=== PATIENT | male | born 1955 | race Hispanic/Latino ===

== ENCOUNTER 2017-10-12 11:59 | Emergency (ER) | payer OTHER, SELFPAY ==
[2017-10-12 12:53] LABS: Protime INR 0.9
[2017-10-12 12:54] LABS: Absolute Lymphocytes (CBC) 0.5 K/uL (0.7-4.9); Absolute Monocytes 0.3 K/uL (0.1-1.3); Basophils % 0.5 % (0-1.3); Eosinophils % 0.9 % (0-4.4); Hematocrit 39.4 % (39.6-49.0); Lymphocytes % 9.1 % (15.3-44.8); MCH 29.9 pg (27.0-35.0); MCV 89.8 fL (80-100); MPV 10.2 fL (7.6-11.3); Monocytes % 4.2 % (3.3-12.3); Potassium 4.7 mEq/L (3.6-5.0); RBC Red Blood Cell Count 4.39 M/uL (4.33-5.43)
[2017-10-12 13:00] LABS: Bilirubin Direct 0.1 mg/dL (0-0.2); Bilirubin Total 0.7 mg/dL (0.3-1.2); Protein, Total 7.1 g/dL (6.0-8.3)
[2017-10-12 13:02] LABS: CKMB Creatine Kinase MB 2.8 ng/ml (0.3-4.0)
--- NOTE | 2017-10-12 13:44 | RAD REPORT ---
EXAM DESCRIPTION: CT - Head Brain Wo Cont - 10/12/2017 1:30 pm CLINICAL HISTORY: Frontal headache, weakness, dizziness COMPARISON: None. TECHNIQUE: Axial 5 mm thick images of the head were obtained without IV contrast. All CT scans are performed using dose optimization technique as appropriate and may include automated exposure control or mA/KV adjustment according to patient size. FINDINGS: No intracranial hemorrhage, mass, edema or shift of mid-line structures. No acute cortical based infarction. Patient has mild atrophy and mild chronic ischemic change. Ventricular size is in proportion. No abnormal extra-axial fluid collections. Arterial and physiologic calcifications are pr esent. Mastoid air cells and visualized portions of the paranasal sinuses are clear. No acute bony findings. IMPRESSION: Mild atrophy and chronic ischemic change with no acute intracranial finding.
--- NOTE | 2017-10-12 13:48 | RAD REPORT ---
EXAM DESCRIPTION: CT - Head angio - 10/12/2017 1:35 pm CLINICAL HISTORY: Headache, dizziness, hypertension TECHNIQUE: During dynamic enhancement using nonionic IV contrast, axial 1 millimeter thick images we re obtained. Exam extended from just below the skull base through the top of the skull. Sagittal and coronal reformatted images were generated and reviewed. All CT scans are performed using dose optimization technique as appropriate and may include automated exposure control or mA/KV adjustment according to patient size. COMPARISON: Noncontrast CT head same date FINDINGS: Vertebral arteries are codominant. No basilar artery abnormality seen. Bilateral internal carotid artery is also unremarkable with no stenosis. Atherosclerotic calcifications are present wit hin the cavernous and supraclinoid portions of each internal carotid artery. No significant luminal n arrowing seen. The anterior, middle and posterior cerebral artery distributions are unremarkable. No aneurysm or vascular malformation identifiable. Normal opacification of the major venous sinuses. No venous sinus thrombosis. IMPRESSION: Negative CT angio head examination for aneurysm, vascular malformation or other signifi cant finding. Mild internal carotid atherosclerotic calcifications are present without luminal narrowing.
--- NOTE | 2017-10-12 14:07 | RAD REPORT ---
EXAM DESCRIPTION: RAD - Chest Single View - 10/12/2017 1:56 pm CLINICAL HISTORY: Headache, dizziness, weakness COMPARISON: February 2016 TECHNIQUE: AP portable chest image was obtained 1346 hours . FINDINGS: Interstitial markings are accentuated by low lung volume. Significant interval change is d oubtful. The shallow inspiration could result in lung base edema or infiltrate could be masked. No co nsolidation. No failure finding. Heart and vasculature are normal. No measurable pleural effusion and no pneumothorax. No gross bony abnormality seen. No acute aortic findings suspected. IMPRESSION: No acute cardiopulmonary process. Shallow inspiration could potentially mask earliest stages of lung base interstitial edema or infiltr ate.
--- NOTE | 2017-10-12 14:13 | EDPHYS ---
Physician Documentation [facility] Name: Ian Celestin Age: 62 yrs Sex: Male : 1955 Arrival Date: 10/12/2017 Time: 12:01 Bed 5 Private MD: ED Physician Dveyn Yeboah HPI: 10/12 12:17 This 62 yrs old Male presents to ER via Ambulatory with complaints of lonnie Headache, Vomiting. 12:17 The patient complains of pain to the forehead, left side of forehead and right side of lonnie forehead. The patient describes the headache as aching. Onset: The symptoms/episode began/occurred this morning. Associated signs and symptoms: The patient has no apparent associated signs or symptoms. Severity of symptoms: At its worst the pain was mild, in the emergency department the pain is unchanged. Headache History: Denies prior headaches. The symptoms are alleviated by nothing. the symptoms are aggravated by nothing. The patient has not experienced similar symptoms in the past. Historical: - Allergies: 12:07 Lisinopril; aj - Home Meds: 12:07 levemir 100 u/ml [Active]; losartan 50 mg Oral tab 1 tab once daily [Active]; metformin aj 500 mg Oral Tb24 2 tabs 2 times per day for Type 2 Diabetes Mellitus [Active]; - PMHx: 12:07 Diabetes - IDDM; Hyperlipidemia; Hypertension; aj - PSHx: 12:07 None; aj - Immunization history:: Adult Immunizations up to date. - Social history:: Smoking status: Patient/guardian denies using tobacco. - Family history:: not pertinent. ROS: 12:17 Constitutional: Negative for fever, chills, and weight loss, Eyes: Negative for injury, lonnie pain, redness, and discharge, ENT: Negative for injury, pain, and discharge, Neck: Negative for injury, pain, and swelling, Cardiovascular: Negative for chest pain, palpitations, and edema, Respiratory: Negative for shortness of breath, cough, wheezing, and pleuritic chest pain, Abdomen/GI: Negative for abdominal pain, nausea, vomiting, diarrhea, and constipation, Back: Negative for injury and pain, : Negative for injury, bleeding, discharge, and swelling, MS/Extremity: Negative for injury and deformity, Skin: Negative for injury, rash, and discoloration, Psych: Negative for depression, anxiety, suicide ideation, homicidal ideation, and hallucinations, Allergy/Immunology: Negative for hives, rash, and allergies, Endocrine: Negative for neck swelling, polydipsia, polyuria, polyphagia, and marked weight changes, Hematologic/Lymphatic: Negative for swollen nodes, abnormal bleeding, and unusual bruising. 12:17 Neuro: Positive for headache. Exam: 12:17 Constitutional: This is a well developed, well nourished patient who is awake, alert, lonnie and in no acute distress. Head/Face: Normocephalic, atraumatic. Eyes: Pupils equal round and reactive to light, extra-ocular motions intact. Lids and lashes normal. Conjunctiva and sclera are non-icteric and not injected. Cornea within normal limits. Periorbital areas with no swelling, redness, or edema. ENT: Nares patent. No nasal discharge, no septal abnormalities noted. Tympanic membranes are normal and external auditory canals are clear. Oropharynx with no redness, swelling, or masses, exudates, or evidence of obstruction, uvula midline. Mucous membranes moist. Neck: Trachea midline, no thyromegaly or masses palpated, and no cervical lymphadenopathy. Supple, full range of motion without nuchal rigidity, or vertebral point tenderness. No Meningismus. Chest/axilla: Normal chest wall appearance and motion. Nontender with no deformity. No lesions are appreciated. Cardiovascular: Regular rate and rhythm with a normal S1 and S2. No gallops, murmurs, or rubs. Normal PMI, no JVD. No pulse deficits. Respiratory: Lungs have equal breath sounds bilaterally, clear to auscultation and percussion. No rales, rhonchi or wheezes noted. No increased work of breathing, no retractions or nasal flaring. Abdomen/GI: Soft, non-tender, with normal bowel sounds. No distension or tympany. No guarding or rebound. No evidence of tenderness throughout. Back: No spinal tenderness. No costovertebral tenderness. Full range of motion. Male : Normal genitalia with no discharge or lesions. Skin: Warm, dry with normal turgor. Normal color with no rashes, no lesions, and no evidence of cellulitis. MS/ Extremity: Pulses equal, no cyanosis. Neurovascular intact. Full, normal range of motion. Neuro: Awake and alert, GCS 15, oriented to person, place, time, and situation. Cranial nerves II-XII grossly intact. Motor strength 5/5 in all extremities. Sensory grossly intact. Cerebellar exam normal. Normal gait. Psych: Awake, alert, with orientation to person, place and time. Behavior, mood, and affect are within normal limits. 12:17 Neck: ROM/movement: is normal, no acute changes, Meningeal signs: are not present, Kernig's sign is negative, Brudzinski's sign is negative. Vital Signs: 12:07 BP 178 / 84; Pulse 90; Resp 18; Temp 98.3; Pulse Ox 98% on R/A; Weight 65.77 kg; Height aj 5 ft. 6 in. (167.64 cm); Pain 10/10; 13:54 BP 179 / 79; Pulse 74; Resp 13; Temp 98.5; Pulse Ox 99% on R/A; Pain 7/10; ch 14:40 BP 140 / 71; Pulse 80; Resp 16; Pulse Ox 98% on R/A; ss 15:30 BP 145 / 87; Pulse 81; Resp 16; Temp 97.9; Pulse Ox 99% on R/A; Pain 0/10; ch 12:07 Body Mass Index 23.40 (65.77 kg, 167.64 cm) aj MDM: 12:11 Patient medically screened. [facility] 12:20 Data reviewed: vital signs, nurses notes, lab test result(s), EKG, radiologic studies, [facility] CT scan, plain films. 10/12 12:17 Order name: Basic Metabolic Panel; Complete Time: 13:52 [facility] 10/12 12:17 Order name: BNP; Complete Time: 13:52 [facility] 10/12 12:17 Order name: CBC with Diff [facility] 10/12 12:17 Order name: Ckmb; Complete Time: 13:52 [facility] 10/12 12:17 Order name: CPK; Complete Time: 13:52 [facility] 10/12 12:17 Order name: LFT's; Complete Time: 13:52 [facility] 10/12 12:17 Order name: Magnesium; Complete Time: 13:52 [facility] 10/12 12:17 Order name: PT-INR; Complete Time: 13:52 [facility] 10/12 12:17 Order name: Ptt, Activated; Complete Time: 13:52 [facility] 10/12 12:17 Order name: Troponin (emerg Dept Use Only); Complete Time: 13:52 [facility] 10/12 12:17 Order name: XRAY Chest (1 view); Complete Time: 14:09 [facility] 10/12 12:17 Order name: CT Head Brain wo Cont; Complete Time: 13:52 [facility] 10/12 13:08 Order name: CBC Smear Scan EDMS 10/12 16:03 Order name: Urine Dipstick--Ancillary (enter results) 10/12 12:17 Order name: EKG; Complete Time: 12:18 [facility] 10/12 12:17 Order name: Cardiac monitoring; Complete Time: 13:56 [facility] 10/12 12:17 Order name: EKG - Nurse/Tech; Complete Time: 13:56 [facility] 10/12 12:17 Order name: IV Saline Lock; Complete Time: 13:56 [facility] 10/12 12:17 Order name: Labs collected and sent; Complete Time: 13:57 [facility] 10/12 12:17 Order name: O2 Per Protocol; Complete Time: 13:57 [facility] 10/12 12:17 Order name: O2 Sat Monitoring; Complete Time: 13:57 [facility] 10/12 12:17 Order name: Urine Dipstick-Ancillary (obtain specimen); Complete Time: 13:57 [facility] 10/12 12:17 Order name: Seizure Precautions; Complete Time: 16:12 [facility] 10/12 12:21 Order name: Head angio; Complete Time: 13:52 EDMS Administered Medications: 14:05 Drug: Insulin Regular Human 5 units {Co-Signature: margarette (Adri Santos RN).} Route: IVP; Site: right forearm; 16:12 Follow up: Response: No adverse reaction; Marked relief of symptoms ch 14:05 Drug: Insulin Regular Human 8 units {Co-Signature: margarette (Adri Santos RN).} Route: ch Sub-Q; Site: right upper arm; 16:12 Follow up: Response: No adverse reaction; Blood sugar is lowered ch 14:20 Drug: NS 0.9% 500 ml Route: IV; Rate: bolus; Site: right forearm; ss 15:00 Follow up: IV Status: Completed infusion; IV Intake: 500ml ch 15:01 Follow up: IV Status: Completed infusion; IV Intake: 500ml 16:13 Not Given (pt denies pain or nausea): TORadol 30 mg IVP once ch 16:13 Not Given (Patient Refused; pt states he is not nausous, or having pain any more): Zofran 4 mg IVP once; over 2 minutes Point of Care Testing: Blood Glucose: 14:40 Blood Glucose: 170 mg/dL; ss Ranges: Critical Glucose Levels:Adult <50 mg/dl or >400 mg/dl <40 mg/dl or >180 mg/dl Disposition: 10/12/17 14:13 Discharged to Home. Impression: Headache, Dizziness and giddiness, Type 1 diabetes mellitus, Essential (primary) hypertension. - Condition is Stable. - Discharge Instructions: Dizziness, General Headache Without Cause, Hypertension, Hypertension, Wgih-[id number], General Headache Without Cause, Ecjy-ev-Ugem, Dizziness, [id number]-[id number]. - Prescriptions for Fioricet with Codeine 50- 325-40-30 mg Oral capsule - take 1 capsule by ORAL route every 4 hours as needed not to exceed 6 capsules per 24hrs; 24 capsule. Zofran 4 mg Oral Tablet - take 1 tablet by ORAL route every 12 hours As needed; 14 tablet. - Medication Reconciliation Form, Thank You Letter, Antibiotic Education, Prescription Opioid Use, Work release form form. - Follow up: Private Physician; When: 2 - 3 days; Reason: Recheck today's complaints, Continuance of care, Re-evaluation by your physician. Follow up: Huan Oglesby MD; When: 2 - 3 days; Reason: Recheck today's complaints, Re-evaluation by your physician. - Problem is new. - Symptoms have improved. Signatures: Dispatcher [employer] Jacquelin Kevin, Luna Ayala RN, ch, RN RN aj Anderson, Corey, MD MD cha Smirch, Shelby, RN RN Adri Santos RN
--- NOTE | 2017-10-12 14:13 | ER ---
Nurse's Notes [facility] Name: Ian Celestin Age: 62 yrs Sex: Male : 1955 Arrival Date: 10/12/2017 Time: 12:01 Bed 5 Private MD: Diagnosis: Headache;Dizziness and giddiness;Type 1 diabetes mellitus;Essential (primary) hypertension Presentation: 10/12 12:05 Presenting complaint: Patient states: Frontal headache with dizziness that started this aj morning at 0730. Patient reports he was laying down when the headache started. Transition of care: patient was not received from another setting of care. Onset of symptoms was October 12, 2017. Care prior to arrival: None. 12:05 Method Of Arrival: Ambulatory 12:05 Acuity: SUZANNA 3 aj Triage Assessment: 12:07 Headache History: Denies prior headaches. General: Appears in no apparent distress. aj comfortable, Behavior is calm, cooperative, appropriate for age. Pain: Complains of pain in face and scalp Pain currently is 10 out of 10 on a pain scale. Pain began suddenly, 4 hours ago. Also complains of dizziness. Neuro: Level of Consciousness is awake, alert, obeys commands, Oriented to person, place, time, situation. Respiratory: Airway is patent Respiratory effort is even, unlabored, Respiratory pattern is regular, symmetrical. GI: No signs and/or symptoms were reported involving the gastrointestinal system. Derm: Skin is intact, is healthy with good turgor, Skin is pink, warm \T\ dry. normal. Historical: - Allergies: 12:07 Lisinopril; aj - Home Meds: 12:07 levemir 100 u/ml [Active]; losartan 50 mg Oral tab 1 tab once daily [Active]; metformin aj 500 mg Oral Tb24 2 tabs 2 times per day for Type 2 Diabetes Mellitus [Active]; - PMHx: 12:07 Diabetes - IDDM; Hyperlipidemia; Hypertension; aj - PSHx: 12:07 None; aj - Immunization history:: Adult Immunizations up to date. - Social history:: Smoking status: Patient/guardian denies using tobacco. - Family history:: not pertinent. Screenin:54 Abuse screen: Denies threats or abuse. Denies injuries from another. Nutritional ch screening: No deficits noted. Tuberculosis screening: No symptoms or risk factors identified. Fall Risk None identified. Assessment: 12:30 General: Appears in no apparent distress. comfortable, Behavior is calm, cooperative, ch appropriate for age. Pain: Complains of pain in top of head, forehead, right confucianist and left confucianist. 12:30 Neuro: No deficits noted. Level of Consciousness is awake, alert, obeys commands, ch Oriented to person, place, time, situation, [employer] are equal bilaterally Moves all extremities. Full function Gait is steady, Speech is normal, Facial symmetry appears normal, Facial symmetry: tongue is midline, Pupils are PERRLA. Neuro: Reports dizziness, headache. Cardiovascular: Heart tones S1 S2 present Capillary refill < 3 seconds in bilateral fingers toes Clubbing of nail beds is absent JVD is present Patient's skin is warm and dry. Pulses are all present. Edema is absent. Rhythm is sinus rhythm. Respiratory: Airway is patent Respiratory effort is even, unlabored, Breath sounds are clear bilaterally. GI: No signs and/or symptoms were reported involving the gastrointestinal system. : No signs and/or symptoms were reported regarding the genitourinary system. EENT: No signs and/or symptoms were reported regarding the EENT system. Derm: Skin is pink, warm \T\ dry. 13:54 Reassessment: Patient appears in no apparent distress at this time. No changes from previously documented assessment. Patient and/or family updated on plan of care and expected duration. Pain level reassessed. Patient is alert, oriented x 3, equal unlabored respirations, skin warm/dry/pink. 15:00 Reassessment: Patient appears in no apparent distress at this time. Patient and/or family updated on plan of care and expected duration. Pain level reassessed. Patient is alert, oriented x 3, equal unlabored respirations, skin warm/dry/pink. Patient denies pain at this time. Patient states feeling better. Patient states symptoms have improved. 15:30 Reassessment: Patient appears in no apparent distress at this time. AWAITING ERP TO SPEAK WITH PT PRIOR TO DISCHARGE. AWAITING ERP TO REVIEW RESULTS, DISCHARGE, FOLLOW UP CARE, AND TO ANSWER PT QUESTIONS ABOUT INSULIN ADMINISTRATION. Vital Signs: 12:07 BP 178 / 84; Pulse 90; Resp 18; Temp 98.3; Pulse Ox 98% on R/A; Weight 65.77 kg; Height aj 5 ft. 6 in. (167.64 cm); Pain 10/10; 13:54 BP 179 / 79; Pulse 74; Resp 13; Temp 98.5; Pulse Ox 99% on R/A; Pain 7/10; ch 14:40 BP 140 / 71; Pulse 80; Resp 16; Pulse Ox 98% on R/A; ss 15:30 BP 145 / 87; Pulse 81; Resp 16; Temp 97.9; Pulse Ox 99% on R/A; Pain 0/10; ch 12:07 Body Mass Index 23.40 (65.77 kg, 167.64 cm) ED Course: 12:01 Patient arrived in ED. as 12:06 Triage completed. aj 12:07 Arm band placed on right wrist. Patient placed in an exam room. aj 12:11 Devyn Yeboah MD is Attending Physician. lonnie 12:12 Jacquelin More, ROLY is Primary Nurse. ch 12:25 Patient has correct armband on for positive identification. Placed in gown. Bed in low ch position. Call light in reach. Side rails up X2. Adult w/ patient. 12:25 pvc monitor on. Pulse ox on. NIBP on. Warm blanket given. ch 12:25 No provider procedures requiring assistance completed. Inserted saline lock: 18 gauge ch in right forearm, using aseptic technique. Blood collected. 12:59 Radiology exam delayed due to lab results not completed at this time. (BUN/Creatinine). sj 13:01 EKG done, by line service technician. reviewed by Devyn Yeboah MD. at1 13:28 CT completed. Patient tolerated procedure well. Patient moved to CT via wheelchair. jg1 Patient moved back from CT. 13:30 CT Head Brain wo Cont In Process Unspecified. EDMS 13:30 Head angio In Process Unspecified. EDMS 13:32 Note: pt in ct. sw 13:53 X-ray completed. Patient tolerated procedure well. jb2 13:53 XRAY Chest (1 view) In Process Unspecified. EDMS 14:10 Huan Oglesby MD is Referral Physician. lonnie 15:30 IV discontinued, intact, bleeding controlled, No redness/swelling at site. Pressure ch dressing applied. Administered Medications: 14:05 Drug: Insulin Regular Human 5 units {Co-Signature: margarette (Adri Santos RN).} Route: IVP; ch Site: right forearm; 16:12 Follow up: Response: No adverse reaction; Marked relief of symptoms 14:05 Drug: Insulin Regular Human 8 units {Co-Signature: ss (Adri Santos RN).} Route: ch Sub-Q; Site: right upper arm; 16:12 Follow up: Response: No adverse reaction; Blood sugar is lowered 14:20 Drug: NS 0.9% 500 ml Route: IV; Rate: bolus; Site: right forearm; ss 15:00 Follow up: IV Status: Completed infusion; IV Intake: 500ml ch 15:01 Follow up: IV Status: Completed infusion; IV Intake: 500ml 16:13 Not Given (pt denies pain or nausea): TORadol 30 mg IVP once 16:13 Not Given (Patient Refused; pt states he is not nausous, or having pain any more): ch Zofran 4 mg IVP once; over 2 minutes Point of Care Testing: Blood Glucose: 14:40 Blood Glucose: 170 mg/dL; ss Ranges: Intake: 15:00 IV: 500ml; Total: 500ml. 15:01 IV: 500ml; Total: 1000ml. Outcome: 14:13 Discharge ordered by . [facility] 16:18 Discharged to home ambulatory, with family. 16:18 Condition: improved 16:18 Discharge instructions given to patient, family, Instructed on discharge instructions, follow up and referral plans. medication usage, Demonstrated understanding of instructions, follow-up care, medications, Prescriptions given X 2. 16:23 Patient left the ED. Signatures: Dispatcher [employer] EDJacquelin Argueta RN RN ch Myers, Amanda, RN RN aj Anderson, Corey, MD MD cha Buechter, Jesse jb2 Heather Villavicencio Susan sj Martinez, Amelia as Smirch, Shelby, RN RN ss gonzales, Amanda, director private EKG Tat1 Birgit Min RN
[2017-10-12] MEDS ORDERED: NA CHLORIDE 0.9% 500 ML ONE (14:23)
[2017-10-12] MEDS ORDERED: INSULIN -REGULAR HUMAN 50 UNIT/0.5 ML ML ONE (14:23)
[2017-10-12] MEDS ORDERED: ONDANSETRON 4 MG/2 ML VIAL ONE (14:23)
[2017-10-12] MEDS ORDERED: KETOROLAC 30 MG/ML INJ ONE (14:23)
[2017-10-12 15:11] LABS: Blood Morphology Comment NOT SEEN (NOT SEEN); Platelet Estimate ADEQ; Urine White Blood Cell Casts OK
[2017-10-12 16:37] VITALS: BP 145/87; TEMP 97.9; O2SAT 99
[2017-10-12 16:39] LABS: Urine Blood TRACE (NEG); Urine Glucose 2+ (NEG); Urine Protein 2+ (NEG); Urine Specific Gravity 1.015 (1.005-1.030); Urine pH 5.5 (5.0-7.0)
--- NOTE | 2017-10-13 07:37 | EKG ---
Test Date: 2017-10-12 Test Time: 12:44:20 Software Integrator: BLAKE MEASUREMENT RESULTS: Intervals: Rate: 78 AR: 126 QRSD: 78 QT: 374 QTc: 426 Sherman: P: 66 AR: 126 QRS: 74 T: 50 INTERPRETIVE STATEMENTS: Normal sinus rhythm Normal ECG Compared to ECG 02/15/2016 00:09:14 T-wave abnormality no longer present Electronically Signed On 10-13-17 07:35:06 CDT by Jaiden Purcell
== END 2017-10-12 16:23 | disposition home or self-care (01) ==
LOC: ER 11:59
DX: R42 Dizziness and giddiness (principal); E10.9 Type 1 diabetes mellitus without complications; I10 Essential (primary) hypertension; E78.5 Hyperlipidemia, unspecified; Z88.8 Allergy status to other drugs, medicaments and biological substances
CPT/HCPCS: 36415; 70450; 70496; 71045; 80048; 80076; 81003; 82550; 82553; 82962; 83735; 83880; 84484; 85025; 85610; 85730; 93005; 96361; 96372; 96374; 99285; J2405; Q9967